=== PATIENT | female | born 1955 | race Caucasian/White ===

== ENCOUNTER 2016-12-28 04:51 | Observation (INO) | payer MEDICARE, OTHER ==
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
[2016-12-28 04:04] LABS: BASOPHILS 0.3 %; BASOPHILS ABSOLUTE 0.04 10/3/uL (0.0-0.16); EOSINOPHILS 2.4 %; EOSINOPHILS ABSOLUTE 0.32 10/3/uL (0.0-0.53); HEMATOCRIT 34.7 % (36.0-48.0); HEMOGLOBIN 11.6 g/dL (12.0-16.0); IMMATURE GRANULOCYTES 0.2 %; LYMPHOCYTES 43.1 %; LYMPHOCYTES ABSOLUTE 5.78 10/3/uL (0.67-4.30); MEAN CORPUS HGB CONC 33.4 g/dL (32.0-36.0); MEAN CORPUSCULAR HEMOGLOB 30.7 pg (26.0-34.0); MEAN PLATELET VOLUME 9.8 fL (9.2-13.0); MONOCYTES ABSOLUTE 1.34 10/3/uL (0.21-1.20); PLATELET COUNT 259 10/3/uL (150-400); RED CELL COUNT 3.78 10/6/uL (4.0-5.6)
[2016-12-28 04:05] LABS: ER CBC TAT 0 Hrs 05 Mins; IMMATURE GRANULOCYTES ABSOLUTE 0.03 10/3/uL (0.0-0.11); MANUAL DIFF NO %; MEAN CORPUSCULAR VOLUME 91.8 fL (80-100); RBC DISTRIBUTION WIDTH 16.1 % (12.0-16.0); WHITE BLOOD CELLS 13.4 10/3/uL (4.5-10.5)
[2016-12-28 04:19] LABS: INTERNATIONAL NORMAL RATI 1.1 UNITS (-); PARTIAL THROMBO TIME 30.9 SEC (22.5-37.2); PROTIME (NOT ORD) 13.6 SEC (12.0-14.5)
[2016-12-28 04:24] LABS: BUN (BLOOD UREA NITROGEN) 6 MG/DL (6-23); CALCIUM, SERUM 8.2 MG/DL (8.5-10.4); CHEST PAIN PROFILE TAT 0 Hrs 24 Mins; CHLORIDE, SERUM 105 MMOL/L (96-112); CO2 (CARBON DIOXIDE) 29 MMOL/L (24-34); GFR AFRICAN AMERICAN 115 ML/MIN (>=60); GFR NON AFRICAN AMERICAN 99 ML/MIN (>=60); GLUCOSE, SERUM 93 MG/DL (60-99); POTASSIUM, SERUM 3.8 MMOL/L (3.5-5.3); SODIUM, SERUM 139 MMOL/L (135-148); TROPONIN I <0.02 NG/ML (<0.05)
[2016-12-28 04:45] LABS: BASOPHILS 1 %; BASOPHILS ABSOLUTE (CALC) 0.13 10/3/uL (0.0-0.16); EOSINOPHILS 1 %; EOSINOPHILS ABSOLUTE (CALC) 0.13 10/3/uL (0.0-0.53); ER DIFF TAT 0 Hrs 45 Mins; LYMPHOCYTES 39 %; LYMPHOCYTES ABSOLUTE (CALC) 5.23 10/3/uL (0.67-4.30); MONOCYTES 8 %; MONOCYTES ABSOLUTE (CALC) 1.07 10/3/uL (0.21-1.20); NEUTROPHILS ABSOLUTE (CALC) 6.83 10/3/uL (2.02-8.40); SEGMENTED NEUTROPHIL (0) 51 %; TOTAL NUCLEATED CELLS 100
[2016-12-28 04:46] LABS: BURR CELLS 1+ (3-10/OIF) (0-2/OIF); SCHISTOCYTES OCC (0-2/OIF); SMUDGE CELLS OCC
[2016-12-28 04:47] LABS: ELLIPTOCYTES 1+ (3-10/OIF) (0-2/OIF); PLATELET ESTIMATE ADQ (ADEQUATE)
[~2016-12-28 04:51] MED LIST: ASAB PO; BUSPAR10 PO; CELEXA40 MG PO; COMBIVENT INH; FISH-EPA1000 MG PO; IBU800 PO; LIPITOR40 PO; NITROSTAT0.4 MG SL; NORV25 PO; PEP20 PO; TOPXL25 PO; TUDORZA PRESS400 MCG INH; ULTRAM50 PO; VIST25 PO
[2016-12-28] MEDS ORDERED: ULTRAM50 PO (12:19)
[2016-12-28] MEDS ORDERED: NITROSTAT0.4 MG SL (12:19)
[2016-12-28] MEDS ORDERED: VIST25 PO (12:21)
[2016-12-28] MEDS ORDERED: LIPITOR20 PO (12:22)
[2016-12-28] MEDS ORDERED: CELEXA20 PO (12:23)
[2016-12-28] MEDS ORDERED: PEP20 PO (12:24)
[2016-12-28] MEDS ORDERED: LOP25 PO (12:25)
[2016-12-28] MEDS ORDERED: MIRALAX POWDER1 PKT PO (12:26)
[2016-12-28] MEDS ORDERED: VENTOLIN HFA INH (12:27)
[2016-12-28] MEDS ORDERED: ASAB PO (12:28)
[2016-12-28] MEDS ORDERED: FISH-EPA1000 MG PO (12:29)
== END 2016-12-28 17:05 | disposition home or self-care (01) ==
LOC: ER 04:51 → CDU1 05:09
PROVIDERS: Emergency Medicine
DX: R07.89 Other chest pain (principal); I25.10 Atherosclerotic heart disease of native coronary artery without angina pectoris; E78.5 Hyperlipidemia, unspecified; F32.9 Major depressive disorder, single episode, unspecified; J44.9 Chronic obstructive pulmonary disease, unspecified; F17.210 Nicotine dependence, cigarettes, uncomplicated; Z82.49 Family history of ischemic heart disease and other diseases of the circulatory system; Z90.710 Acquired absence of both cervix and uterus; Z98.890 Other specified postprocedural states; Z82.3 Family history of stroke; Z87.891 Personal history of nicotine dependence; Z88.5 Allergy status to narcotic agent; Z79.82 Long term (current) use of aspirin; Z79.899 Other long term (current) drug therapy
CPT/HCPCS: 71010; 78452; 80048; 83735; 84484; 85025; 85610; 85730; 93005; 93017; 99285; A9270-GY; A9502; G0378; J2785